=== PATIENT | female | born 1955 | race Caucasian/White ===

== ENCOUNTER → 2019-03-17 | Outpatient (CLI) | payer OTHER ==
[~2019-03-17] VITALS: Ht 172.7 cm; Wt 114.3 kg
[~2019-03-17] MED LIST: AMBIEN 5 MG TABL5 M1 PO; AUGMENTIN 875875 M1 PO; AZILECT1 MG PO; BACTRIM DS TAB1 EACH PO; BEANO1 EACH PO; BENTYL 10 MG CA10 MG PO; CARBIDOPA-LEVO1 EAC5 PO; CELEXA 10 MG TA10 MG PO; CILOXAN5 ML; CIPROFLOXACIN500 M1 PO; CIPROFLOXACIN500 M3 PO; CYMBALTA30 MG PO; DESYREL50 MG PO; DIUREX MAX50 MG PO; ENTOCORT EC 3 MG3 M1; ESTRACE PO; ESTRACE1 MG PO; FISH OIL 1,2001 EAC4 PO; FLAGYL500 MG; FLAGYL500 MG PO; HAIR, SKIN & N1 EAC2 PO; HUMIRA20 MG/0.4 SQ; LAXATIVE PEG 3317 GM PO; LEXAPRO20 MG PO; LORTAB PO; NEXIUM 40 MG CA40 M1 PO; NEXIUM40 MG PO; NORCO 5-325 TA1 EACH PO; PEPCID20 MG PO; PHENTERMINE H37.5 MG PO; PREDNISONE 10 M10 M1 PO; PREDNISONE 5 MG5 M1; PRILOSEC40 MG PO; PROTONIX40 M2; TRAMADOL 50 MG50 MG PO; TRAZODONE HCL50 MG PO; TYLENOL P.M. E1 EAC3 PO; TYLENOL PM EX-1 EACH PO; VITAMIN D2000 UNIT PO; VITAMIN D400 UNI1; ZANAFLEX4 MG PO
--- NOTE | 2019-03-20 11:53 | P ---
[facility] [place] [address] PROCEDURE REPORT Name: CRISTO NATION Room #: REG [facility]#: [id number] Admission: 03/17/19 Attend Phys: Terrence Montes MD Discharge: Date of : 51 Report #: [id number] THIS REPORT FOR: //name// CC: Terrence Arriola MD PhD Sky Wilde MD DATE OF SERVICE: 03/17/2019 BRIEF HISTORY: The patient is a 63-year-old woman with history of recurrent dysphagia. She also has a history of Parkinson's disease. She has been dilated in the past with success. She also has a history of reflux disease. PREOPERATIVE DIAGNOSIS: Recurrent dysphagia. POSTOPERATIVE DIAGNOSES: 1. Small hiatus hernia. 2. Diffuse gastritis. 3. Dysphagia. MEDICATIONS: Deep sedation with propofol per Anesthesia. SPECIMEN: None. ESTIMATED BLOOD LOSS: None. PROCEDURE: EGD with biopsy and Mojica dilation. FINDINGS: Prior to propofol sedation, this procedure of upper endoscopy discussed with the patient as well as potential risks and its complications. She indicates she understands and desires to proceed. DESCRIPTION OF PROCEDURE: With the patient in left lateral decubitus position, the Olympus video endoscope was inserted in the cervical esophagus under direct vision without difficulty. Examination of this organ through its entire length revealed normal esophageal mucosa down the squamocolumnar junction. Squamocolumnar junction was inspected and noted to be unremarkable. Intermittently, a small hiatus hernia was seen. No strictures or masses were seen. Scope was advanced into the stomach, was examined on end view as well as retroflexed views. There was a moderately severe gastritis with a couple of erosions in the antrum. No ulcers or bleeding was seen. Upon retroflexion, the hiatus hernia was seen. No other abnormalities were identified. Biopsies were obtained of the gastritis. The pylorus, duodenal bulb and postbulbar areas sweep were inspected and noted to be unremarkable. At that point, the scope was slowly withdrawn and careful circumferential views confirmed the above findings. [facility] [address] [place] [address] PROCEDURE REPORT Name: CRISTO NATION Room #: REG [facility].#: [id number] Admission: 03/17/19 Attend Phys: Terrence Montes MD Discharge: Date of : 51 Report #: [id number] The patient tolerated the procedure well. The patient has been previously dilated, reports recurrent symptoms. She was dilated with passage of a 60-Thai Mojica dilator. There was no resistance whatsoever. CONDITION OF THE PATIENT UPON DISCHARGE: Following procedure, the patient was drowsy and prepared for colonoscopy. INSTRUCTIONS TO THE PATIENT AND FAMILY AT THE TIME OF DISCHARGE: The patient has recurrent dysphagia. She does have a history of Parkinson's disease, which may be a factor. If she does not have good resolution of symptoms, I would suggest an esophageal manometry for further evaluation of an esophageal dysmotility in view of Parkinson's. She is to continue her current medications for reflux disease. Proceed with colonoscopy at this time. <ELECTRONICALLY SIGNED> By: Terrence Montes MD 03/20/19 1153 1015 [id number] Terrence Montes MD /nt
--- NOTE | 2019-03-20 11:53 | P ---
[facility] [place] [address] PROCEDURE REPORT Name: CRISTO NATION Room #: REG [facility].#: [id number] Admission: 03/17/19 Attend Phys: Terrence Montes MD Discharge: Date of : 51 Report #: [id number] THIS REPORT FOR: //name// CC: Terrence Arriola MD PhD Sky Wilde MD OUTPATIENT COLONOSCOPY REPORT BRIEF HISTORY: The patient is a 63-year-old woman with history of Crohn's disease, who has had a proctectomy who has been having more problems with her stoma including herniation, and evidence of mucosal disease involving the ostomy. It is noteworthy that she stopped Remicade on her own last April because she did not think she needed it anymore. She has had abdominal pain and bleeding through her stoma. PREOPERATIVE DIAGNOSIS: Crohn's disease with recurrent symptoms. POSTOPERATIVE DIAGNOSES: Active Crohn's disease involving the left colon, but most severe in the sigmoid colon. MEDICATIONS: Deep sedation with propofol per anesthesia. SPECIMENS: 1. Random biopsies of cecum, ascending colon. 2. Random biopsies, transverse colon. 3. Random biopsies, descending colon. 4. Random biopsies, sigmoid colon. ESTIMATED BLOOD LOSS: 3 mL. PROCEDURE: Colonoscopy to cecum and terminal ileum via colostomy. FINDINGS: Prior to propofol sedation, procedure of colonoscopy was discussed with the patient as well as potential risks and its complications. She indicates she understands and desires to proceed. DESCRIPTION OF PROCEDURE: With the patient in left lateral decubitus position, digital examination of the ostomy was completed. The mucosa was thick, indurated and very friable. The scope was advanced in the ostomy and advanced under direct vision. Unfortunately, the patient's prep was limited and there were pools of liquidy material scattered about the colon. Unfortunately, these pools were too thick to allow complete removal of all the material. However, we were able to obtain reasonably good views of much of the mucosa. As we withdrew the scope, it was noted the mucosa in the distal terminal ileum was normal. The ileocecal valve was normal. The mucosa was normal. Random biopsies were [facility] [address] [place] [address] PROCEDURE REPORT Name: CRISTO NATION Room #: REG [facility].#: [id number] Admission: 03/17/19 Attend Phys: Terrence Montes MD Discharge: Date of : 51 Report #: [id number] obtained until we reached the descending colon. In the descending colon, there was some loss of vascularity, but no alex ulceration. Multiple biopsies were obtained. However, in the sigmoid colon, particularly the distal 20-25 cm from the ostomy was moderately to severely ulcerated. The closer we got to the ostomy the more ulceration were noted. No strictures or masses were seen, but she does have very significant disease in the distal colon. Scope was withdrawn. The patient tolerated the procedure well. CONDITION OF THE PATIENT UPON DISCHARGE: Following the procedure, the patient drowsy, aroused, conversant and will be discharged home when fully ambulatory. INSTRUCTIONS TO THE PATIENT AND FAMILY AT THE TIME OF DISCHARGE: The patient has been seen by Dr. Raine Arriola and surgery is being planned at this point in time. We will discuss with Dr. Arriola. The patient has been off of Remicade. She clearly needs long-term therapy. She believes Remicade did not help her. We could consider switching to another agent such as Stelara or Entyvio. We will discuss further with Dr. Raine Arriola. Also, surgery is being planned. I am not sure of the time frame. We will discuss with Dr. Arriola. In the interval time, she may benefit from steroids or budesonide. <ELECTRONICALLY SIGNED> By: Terrence Montes MD 03/20/19 1153 1053 0011 Terrence Montes MD /nt
--- NOTE | 2019-03-21 17:06 | PATH ---
[facility] [place] [address] PATHOLOGY RPT PROCEDURE Name: DEENA DELUCA Room #: REG [facility] M..#: [id number] Admission: 03/17/19 Date of : 51 Discharge: Report #: [id number] Path Case #: [id number] [facility] Accession Number: [id number] . 01 Material submitted: . PART A: stomach - BIOPSY OF GASTRITIS TO RULE OUT H PYLORI PART B: colon - RANDOM BIOPSY OF CECUM AND ASCENDING COLON. Modifiers: ascending PART C: colon - RANDOM BIOPSY OF TRANSVERSE COLON. Modifiers: transverse PART D: colon - RANDOM BIOPSY OF DESCENDING COLON. Modifiers: descending PART E: sigmoid colon - RANDOM BIOPSY OF SIGMOID COLON. Modifiers: RANDOM . 01 Clinical history: . History of Crohn's, hiatal hernia, gastritis, dysphagia . 02 Diagnosis: A. Gastric mucosa, gastritis to rule out H. pylori, endoscopic biopsy: - Moderate reactive gastropathy. - Negative for intestinal metaplasia or atrophy. - Negative for Helicobacter pylori (properly controlled immunohistochemical stain performed). . B. Large intestinal mucosa, cecum to ascending colon, endoscopic biopsy: - Mild chronic active colitis, history of Crohn's disease. - Negative for dysplasia or malignancy. . C. Large intestinal mucosa, transverse colon, endoscopic biopsy: - Mild to moderate chronic active colitis associated with rare non-necrotizing granulomata, compatible with the history of Crohn's disease. - Negative for dysplasia or malignancy. . D. Large intestinal mucosa, descending colon, endoscopic biopsy: - Mild to moderate chronic active colitis associated with rare non-necrotizing granulomata, compatible with the history of Crohn's disease. - Negative for dysplasia or malignancy. . E. Large intestinal mucosa, sigmoid colon, endoscopic biopsy: - Moderate to marked chronic active colitis with rare non-necrotizing granulomata, compatible with a history of Crohn's disease. - Negative for dysplasia or malignancy. LBQ 03/21/2019 1249 Local . 02 Comment: Parts B to D: Examination shows an increasing intensity of inflammation (B-D) involving [facility] [address] [place] [address] PATHOLOGY RPT PROCEDURE Name: DEENA DELUCA ALICE Room #: REG [facility].#: [id number] Admission: 03/17/19 Date of : 51 Discharge: Report #: [id number] Path Case #: [id number] the large intestine biopsy tissue fragments. The inflammation within the cecum to ascending colon biopsy tissue is milder with occasional to rare architectural abnormalities and few foci of cryptitis. The remainder biopsy tissues; however, show markedly expanded lamina propria with cryptitis in a few biopsy tissues, crypt abscess formation in others as well as poorly formed non-necrotizing granulomata. The provided history of Crohn's disease is noted. Findings are compatible with the same. There is no dysplasia or malignancy present. (IUV/db; 03/21/2019) . 02 Electronically signed: . Snow Guzman MD, Pathologist NPI- [id number] . 01 Gross description: . A. The specimen is received in formalin, labeled "Deena Deluca, biopsy of gastritis", are two irregular segments of kate soft tissue measuring 0.5 cm in greatest dimension each. Entirely submitted in A1. . B. The specimen is received in formalin, labeled "Deena Deluca, random BX of cecum and ascending colon", are few irregular fragments of kate soft tissue measuring 0.5 x 0.5 x 0.2 cm in aggregate. Entirely submitted in B1. . C. The specimen is received in formalin, labeled "Deena Deluca, random biopsy of transverse colon", are few irregular fragments of kate soft tissue measuring 0.7 x 0.3 x 0.1 cm in aggregate. Entirely submitted in C1. . D. The specimen is received in formalin, labeled "Deena Deluca, random biopsies of descending colon", are few irregular fragments of kate soft tissue measuring 0.7 x 0.7 x 0.1 cm in aggregate. Entirely submitted in D1. . E. The specimen is received in formalin, labeled "Deena Deluca, random biopsies of sigmoid colon", are few irregular fragments of kate soft tissue measuring 0.5 x 0.5 x 0.1 cm in aggregate. Entirely submitted in E1. ([facility]; 03/20/2019) [facility] 03/20/2019 1752 Local . 02 Pathologist provided ICD-10: K31.9, K52.9, K50.10 . 02 CPT . 229574, 723598, 672959, 054198, 686276, [id number] Specimen Comment: A courtesy copy of this report has been sent to [phone] Specimen Comment: Report sent to [address] [address] PATHOLOGY RPT PROCEDURE Name: DEENA DELUCA Room #: REG [facility] Darcie.R.#: [id number] Admission: 03/17/19 Date of : 51 Discharge: Report #: [id number] Path Case #: [id number] Performed at: 01 [facility] [address], [place], [place] [id number] MD Bola Hernandez MD Phone: [phone] Performed at: 02 [facility] [address] [place], [place] [id number] MD Snow Guzman MD Phone: [phone]
== END | disposition home or self-care (01) ==
LOC: GI 07:41
DX: K50.10 Crohn's disease of large intestine without complications (principal); K52.9 Noninfective gastroenteritis and colitis, unspecified; K31.9 Disease of stomach and duodenum, unspecified; R13.19 Other dysphagia; K29.70 Gastritis, unspecified, without bleeding; K44.9 Diaphragmatic hernia without obstruction or gangrene; G20 Parkinson's disease; K21.9 Gastro-esophageal reflux disease without esophagitis; F32.9 Major depressive disorder, single episode, unspecified; Z98.890 Other specified postprocedural states; Z90.710 Acquired absence of both cervix and uterus; Z87.19 Personal history of other diseases of the digestive system; Z79.899 Other long term (current) drug therapy
CPT/HCPCS: 62110; 62900